=== PATIENT | female | born 1935 | race Caucasian/White ===

== ENCOUNTER → 2016-04-21 | Outpatient (REF) ==
[~2016-04-21] MED LIST: ACIDOPHILIS PO; ALBUTEROL0.83 MG/ML IH; ALDACTONE 25MG25 M1 PO; ASPIRIN E.C. 8181 MG PO; BACTROBAN 22GM22 GM NAS; CARTIA XT240 MG PO; CEPHALEXIN500 M1 PO; CLEOCIN HCL300 MG PO; COLACE 100100 MG/CAP PO; COLCHICINE0.6 MG PO; COUMADIN 1MG1 MG/TAB PO; COUMADIN 2MG2 MG/TAB PO; COUMADIN2 MG PO; COUMADIN2.5 MG PO; DIGOXIN0.125 MG PO; DILTIAZEM120 MG PO; FLEET ENEM1 BOT/133; FLEET ENEM1 BOT/133 RC; HCTZ; HCTZ 25MG25 MG PO; HCTZ12.5TAB PO; K-DUR 10 MEQ T10 MEQ PO; KLOR-CON 1010 MEQ PO; LANOXIN 0.120.125 MG PO; LEVAQUIN 5500 MG/TA1 PO; LEVOTHROID0.025 MG PO; LEVOTHROID0.075 MG PO; LEVOTHYROXIN0.075 MG PO; LEVOXYL0.05 MG PO; LEVOXYL0.1 MG PO; LIORESAL20 MG PO; LISINOPRIL5 MG PO; LOPRESSOR 225 MG/TAB PO; LOPRESSOR 550 MG/TAB PO; METOPROLOL SUCC50 M1 PO; METOPROLOL50 MG PO; MICRO-K 1010 MEQ PO; MIRALAX PA17 GM/Dose PO; MS CONTIN 115 MG/TAB PO; MS CONTIN 330 MG/TAB PO; NIRAVAM0.5 MG PO; NORCO 325 MG-101 TAB PO; NORVASC 10MG10 MG PO; NORVASC5 MG PO; PERCOCET 325 MG1 TA2 PO; PLAVIX 75MG TAB75 MG PO; PRIL40 PO; PROBIOTIC-MAJOR PO; PULMICORT90 MCG/Act IH; QUINAPRIL HCL20 MG PO; ROCEPHIN 2GM VIAL21 IJ; SENOKOT S 50 MG1 TAB PO; SIMVASTATIN20 MG PO; SINGULAIR10 MG PO; SYNTHROID0.05 MG/TA PO; TOPROL XL 50MG50 MG PO; TYLENOL 325MG325 MG PO; VITAMIN C BUFF500 MG PO; XANAX0.25 MG PO; ZESTRIL 5MG5 MG PO; ZOCOR 10MG10 MG PO; ZOCOR20 MG PO
== END ==
LOC: ZLAB.WCH 10:29
DX: Z01.89 Encounter for other specified special examinations (principal)

== ENCOUNTER → 2017-08-12 | Outpatient (REF) | LOC: ZLAB.WCH 15:50 | DX: Z01.89 Encounter for other specified special examinations (principal) ==